=== PATIENT | male | born 1940 | race Caucasian/White ===

== ENCOUNTER 2018-01-17 22:08 | Inpatient (IN) | payer MEDICARE ==
[~2018-01-17] VITALS: Ht 175.3 cm; Wt 81.6 kg
--- NOTE | 2018-01-17 22:08 | NUR ---
PT TO ER BED 7. PT BIBRA FROM SNF C/O RESP DISTRESS. PT ARRIVES TO ER ON CPAP IN SEVERE RESP DISTRESS. NOTED TACHYPNIC, SHALLOW RESP. DR BASS AND RT AT BEDSIDE.
--- NOTE | 2018-01-17 22:10 | NUR ---
DR BASS AND RT AT BEDSIDE FOR INTUBATION. SEE INTUBATION INTERVENTION NOTES.
[2018-01-17 22:20] VITALS: BP 92/92
--- NOTE | 2018-01-17 22:20 | NUR ---
VENT SETTINGS: RATE 22 TV 550 FIO2 100% PEEP 5.
--- NOTE | 2018-01-17 22:20 | NUR ---
PT ORALLY INTUBATED VIA ETT #7.5 24CM @ LIP. PT PLACED ON [facility] VENT SETTINGS PER DR ALCANTARA REQUEST. VENT PLUGGED INTO RED OUTLET. AMBU BAG BEDSIDE. ALARMS ARE SET AND AUDIBLE. WILL CONTINUE TO MONITOR Addendum: 01/17/18 at 2310 by JEFF FRIAS RT Amended: Links added.
[2018-01-17] MEDS ORDERED: ACETAMINOPHEN 650 MG/SUPP.RECT RC ONE ×2 (22:30→22:33)
[2018-01-17] MEDS ORDERED: ETOMIDATE 2 MG/ML VIAL IV ONE ×2 (22:30→23:00)
[2018-01-17] MEDS ORDERED: ROCURONIUM BROMIDE 100 MG/10 ML VIAL IV ONE (22:30)
[2018-01-17] MEDS ORDERED: DILTIAZEM HCL IV 125 MG in IV NS 0.9% 100 ML IV PRN (22:30)
[2018-01-17] MEDS ORDERED: IV NS 0.9% 500 ML BAG IV ONE (22:30)
[2018-01-17] MEDS ORDERED: DILTIAZEM HCL 50 MG IV IV ONE (22:30)
--- NOTE | 2018-01-17 22:30 | NUR ---
LAB AT BEDSIDE FOR DRAW.
[2018-01-17] MEDS ORDERED: DILTIAZEM HCL 25 MG IV ONE ×2 (22:32→22:47)
[2018-01-17 22:43] LABS: HEMATOCRIT 35 % (39-51); HEMOGLOBIN 11.2 g/dL (13.5-17.5); LYMPHOCYTES # (AUTO) 0.8 /CMM (0.8-4.8); LYMPHOCYTES % (AUTO) 4.7 % (20.0-44.0); MEAN CORPUSCULAR HEMOGLOBIN 31 PG (26.0-33.0); MEAN CORPUSCULAR HGB CONC 32 g/dl (31.0-36.0); MEAN CORPUSCULAR VOLUME 97 fL (80-96); MONOCYTES % (AUTO) 0.1 % (2.0-12.0); NEUTROPHILS # (AUTO) 17.1 /CMM (1.8-8.9); NEUTROPHILS % (AUTO) 95.2 % (43.0-81.0); PLATELET COUNT (AUTO) 206 /CMM (150-450); RDW COEFFICIENT OF VARIATION 16.3 (11.5-15.0); RED BLOOD CELL COUNT(AUTO) 3.57 MIL/uL (4.5-6.0)
--- NOTE | 2018-01-17 22:45 | NUR ---
ABG RESULT GIVEN TO DR ALCANTARA, INCREASED RR TO 22 Addendum: 01/17/18 at 2311 by JEFF FRIAS RT Amended: Links added.
[2018-01-17] MEDS ORDERED: DILTIAZEM HCL 50 MG IV ONE (22:47)
[2018-01-17 22:51] LABS: ABG BASE EXCESS -15.6 mmol/L; ABG OXYGEN SATURATION 91.5 % (92.0-98.5); ABG PCO2 52.4 mmHg (35.0-45.0); ABG PO2 90.5 mmHg (75.0-100.0); AaDO2 570.1 mmHg; COHb 0.5 % (0.5-1.5); MetHb 0.7 % (0.0-1.5); O2Hb 90.4 % (94.0-97.0); SITE, ABG Right Radial; VENT MODE, BG AC 16 550 100% +5
[2018-01-17] MEDS ORDERED: SODIUM BICARBONATE SYR 50 MEQ/50 ML DISP.SYRIN ONE (22:56)
[2018-01-17] MEDS ORDERED: SODIUM BICARBONATE SYR 50 MEQ/50 ML DISP.SYRIN IV ONE (23:00)
[2018-01-17] MEDS ORDERED: IV NS 0.9% 1,000 ML BAG IV ONE (23:00)
[2018-01-17] MEDS ORDERED: ROCURONIUM BROMIDE 50 MG/5 ML IV ONE (23:00)
[2018-01-17 23:02] LABS: TROPONIN I 0.085 ng/mL (0.00-0.056)
[2018-01-17 23:06] LABS: ALANINE AMINOTRANSFERASE 32 U/L (12-78); ALBUMIN 1.7 g/dL (3.4-5.0); ALKALINE PHOSPHATASE 82 U/L (46-116); ASPARTATE AMINOTRANSFERASE 18 U/L (15-37); B-TYPE NATRIURETIC PEPTIDE 5530 PG/ML (0-125); BILIRUBIN,DIRECT 0.4 mg/dL (0.0-0.2); BILIRUBIN,TOTAL 0.8 mg/dL (0.2-1.0); CALCIUM, SERUM 8.1 mg/dL (8.5-10.1); CARBON DIOXIDE 17 mmol/L (21-32); CHLORIDE 120 mmol/L (98-107); CREATININE 5.8 mg/dL (0.6-1.3); GLUCOSE 218 mg/dL (74-106); POTASSIUM 4.6 mmol/L (3.5-5.1); TOTAL PROTEIN, SERUM 7.2 g/dL (6.4-8.2); UREA NITROGEN, BLOOD 75 mg/dL (7-18)
--- NOTE | 2018-01-17 23:07 | NUR ---
XRAY AT BEDSIDE FOR PLACEMENT OF ET TUBE.
[2018-01-17 23:08] LABS: SODIUM SERUM 157 mmol/L (136-145)
[2018-01-17 23:11] LABS: APPEARANCE,URINE CLOUDY (CLEAR); BILIRUBIN,URINE NEGATIVE (NEGATIVE); BLOOD, URINE 3+ Ery/uL (NEGATIVE); COLOR,URINE DARK YELLOW (YELLOW); KETONES,URINE NEGATIVE (NEGATIVE); LEUKOCYTE ESTERASE ,URINE 3+ (NEGATIVE); NITRITE, URINE POSITIVE (NEGATIVE); PROTEIN,URINE 1+ mg/dl (NEGATIVE); UGLUCOSE NEGATIVE (NEGATIVE); UROBILINOGEN,URINE 0.2 EU/dL (0.2)
--- NOTE | 2018-01-17 23:12 | NUR ---
ORTIZ ETT 1CM. ETT AT 23CM Addendum: 01/17/18 at 2313 by JEFF FRIAS RT Amended: Links added.
[2018-01-17 23:19] LABS: BACTERIA,URINE Many /HPF (None Seen); RBC,URINE 21-50 /HPF (0-2); SQUAMOUS EPITHELIAL CELL,UR Few /HPF (None Seen); WBC,URINE TOO NUMEROUS TO COUN /HPF (0-3)
[2018-01-17] MEDS ORDERED: LEVOFLOXACIN 750 MG /D5W 150ML 150 ML IV ONE ×2 (23:20→23:30)
[2018-01-17] MEDS ORDERED: PIPERACILLIN /TAZOBACTAM 3.375 G VIAL IV ONE (23:20)
[2018-01-17] MEDS ORDERED: ASPIRIN 300 MG/SUPP.RECT RC ONE (23:30)
[2018-01-17] MEDS ORDERED: PIPERACILLIN /TAZOBACTAM 3.375 G in IV D5W 50 ML IV ONE (23:30)
[2018-01-17 23:40] LABS: INR 1.23 (0.87-1.13)
[2018-01-18] VITALS (38 sets, daily range): BP systolic 30–139; BP diastolic 10–74
--- NOTE | 2018-01-18 00:08 | NUR ---
REPORT GIVEN TO ED, RN FOR ADINA IN ICU
--- NOTE | 2018-01-18 00:21 | NUR ---
RT CALLED TO HELP TRANSPORT PT.
[2018-01-18] MEDS ORDERED: IV NS 0.9% 1,000 ML IV PRN ×2 (00:45→07:45)
--- NOTE | 2018-01-18 00:45 | NUR ---
PT TRANSPORTED VIA STRETCHER ON MISSILE PAD MECHANIC WITH RN AND RT PER ACLS PROTOCOL TO ICU 260. VSS.
[2018-01-18] MEDS ORDERED: VANCOMYCIN 1 GM in IV NS 0.9% 250 ML IV SCH (01:00)
[2018-01-18] MEDS ORDERED: Z GUARD REMEDY 2 OZ OINT TP PRN (01:00)
[2018-01-18] MEDS ORDERED: ONDANSETRON HCL/PF 4 MG/2 ML VIAL IVP PRN (01:00)
[2018-01-18] MEDS ORDERED: ACETAMINOPHEN 650 MG/SUPP.RECT RC PRN (01:00)
[2018-01-18] MEDS ORDERED: ZOLPIDEM TARTRATE 5 MG TABLET PO PRN (01:00)
[2018-01-18] MEDS ORDERED: VANCOMYCIN 1 GM VIAL ONE (01:41)
[2018-01-18] MEDS ORDERED: PHENYLEPHRINE 10 MG/ML VIAL ONE (01:51)
[2018-01-18] MEDS ORDERED: DILTIAZEM HCL 25 MG IV ONE (01:53)
[2018-01-18] MEDS ORDERED: MIRT15TA PO (01:56)
[2018-01-18] MEDS ORDERED: FOLI1TAB16 PO (01:56)
[2018-01-18] MEDS ORDERED: THIA100T13 PO (01:56)
[2018-01-18] MEDS ORDERED: NA P133E RC (01:56)
[2018-01-18] MEDS ORDERED: PROHEAL PO (01:56)
[2018-01-18] MEDS ORDERED: ASCO500T9 PO (01:56)
[2018-01-18] MEDS ORDERED: MAGN400O21 PO (01:56)
[2018-01-18] MEDS ORDERED: MULT9LIQ6 PO (01:56)
[2018-01-18] MEDS ORDERED: BISA10SU61 RC (01:56)
[2018-01-18] MEDS ORDERED: ACET-868 PO (01:56)
[2018-01-18] MEDS: PHENYLEPHRINE 80 MG in IV D5W 250 ML IV PRN ×2 (02:15→08:32)
[2018-01-18 03:21] LABS: ABG BASE EXCESS -12.8 mmol/L; ABG OXYGEN SATURATION 87.4 % (92.0-98.5); ABG PCO2 50.8 mmHg (35.0-45.0); ABG PO2 74.1 mmHg (75.0-100.0); AaDO2 588.1 mmHg; COHb 0.3 % (0.5-1.5); MetHb 0.3 % (0.0-1.5); O2Hb 86.9 % (94.0-97.0); PEEP,BG 5 cm H2O; SITE, ABG Right Radial; VT, ABG 550 mL
[2018-01-18] MEDS ORDERED: NOREPINEPHRINE 16 MG in IV D5W 500 ML IV PRN (04:00)
[2018-01-18] MEDS ORDERED: PROPOFOL 100 ML IV PRN (04:00)
[2018-01-18] MEDS ORDERED: PIPERACILLIN /TAZOBACTAM 2.25 G VIAL IV ONE (04:57)
[2018-01-18] MEDS ORDERED: PIPERACILLIN /TAZOBACTAM 2.25 G in IV NS 0.9% 50 ML IV SCH (05:00)
[2018-01-18] MEDS ORDERED: NOREPINEPHRINE 4 MG/4 ML AMPUL IV ONE ×2 (05:15)
--- NOTE | 2018-01-18 05:48 | NUR ---
TALENT ENGINEER PT WAS ADMITTED FROM ER WITH DIAGNOSIS RESPIRATORY FAILURE, UTI, NSTEMI, SEPSIS. STAT INTUBATION WAS DONE IN ER AND NS IV BOLUS 3000 ML GIVEN WELL NAHCO3 100 MEQ IVP. PT WAS A. FIB WITH RVR, SO CARDIZEM DRIP STARTED AFTER BOLUS 10 MG IV. PT IS OBTUNDED, DOES NOT FOLLOW COMMANDS, ALL EXTREMITIES ARE WEAK, RIGHT LOWER LEG IS IN HARD CAST. PT HAS WOUNDS ON RIGHT & LEFT KNEES. PICTURES TAKEN & DRESSINGS CHANGED. KCI MATTRESS APPLIED. STARTED MULTIPLE ANTIBIOTICS IVPB. PT GOT HYPOTENSIVE. STARTED PHENYLEPHRINE DRIP. TITRATED TO MAX. THEN STARTED LEVOPHED DRIP ALSO TO KEEP SBP >90. STAT ABG WAS DONE @ 16./SEE RESULTS/. D-R LORY WAS NOTIFIED. NO FURTHER ORDERS GIVEN. PT IS HARD STICK. HAS ONLY TWO PERIPHERAL IV- LINES. NEED PICC-LINE INSERTION. FEED PREPARATION OPERATOR WAS NOTIFIED. F/C DRAINS BLOODY URINE. CARDIZEM DRIP TITRATED DOWN & STOPPED.
--- NOTE | 2018-01-18 07:15 | NUR ---
RN INITIAL NOTES RECEIVED PT INTUBATED, ETT IN PLACE. ON MECHANICAL VENT. AGONAL BREATHING NOTED. PULSES WEAK AND THREADY. NOTED FIXED, DILATED PUPILS. OG IN PLACE, CONNECTED TO LOW INTERMITTENT SUCTION. NOTED GREENISH GASTRIC OUTPUT AROUND 800ML. IV LINES IN PLACE. PT ON LEVO AT 40MCG/MIN AND ANA ROSA 300MCG/MIN. SBP ON 50S. WILL CALL MD FOR POSSIBLE 3RD PRESSOR. IVF INSUFING. FC IN PLACE, FLUSHED. HEMATURIA NOTED. WILL CLOSELY MONITOR.
[2018-01-18] MEDS ORDERED: PANTOPRAZOLE 40 MG VIAL IV SCH (07:30)
[2018-01-18] MEDS ORDERED: ALLA266C2 TP (07:31)
[2018-01-18] MEDS ORDERED: MULT-24 PO (07:31)
[2018-01-18] MEDS ORDERED: AMIN30LI4 PO (07:31)
--- NOTE | 2018-01-18 07:45 | NUR ---
RN NOTES SEEN AND EXAMINED BY DR. KRAMER. AWARE OF PT'S H&P, CURRENT LAB VALUES AND IMAGING STUDIES. AWARE THAT PT WAS INTUBATED IN ER. GIVEN TOTAL OF NS 2.5L AND SODIUM BICARB. PT WAS ON CARDIZEM DRIP IN ER FOR A.FIB WITH RVR. PT CURRENTLY ON 2 PRESSORS, LEVO AND ANA ROSA, MAXED OUT. WILL START VASO ORDERED. MD ORDERED GIVE NS 2L BOLUS AND ABG. MD ALSO ORDERED LAB WORKS STAT AND IN AM. WILL CLOSELY MONITOR.
[2018-01-18 08:07] LABS: EOSINOPHILS % (AUTO) 0.1 % (0.0-6.0); HEMATOCRIT 28 % (39-51); HEMOGLOBIN 7.9 g/dL (13.5-17.5); LYMPHOCYTES # (AUTO) 1.5 /CMM (0.8-4.8); MEAN CORPUSCULAR HEMOGLOBIN 32 PG (26.0-33.0); MEAN CORPUSCULAR HGB CONC 28 g/dl (31.0-36.0); MEAN CORPUSCULAR VOLUME 112 fL (80-96); MONOCYTES % (AUTO) 0.2 % (2.0-12.0); NEUTROPHILS # (AUTO) 11.8 /CMM (1.8-8.9); NEUTROPHILS % (AUTO) 88.7 % (43.0-81.0); PLATELET COUNT (AUTO) 80 /CMM (150-450); RDW COEFFICIENT OF VARIATION 18.7 (11.5-15.0); WHITE BLOOD COUNT (AUTO) 13.3 K/uL (4.3-11.0)
[2018-01-18] MEDS: VASOPRESSIN INJ 50 UNIT in IV D5W 497.5 ML IV PRN ×2 (08:08→08:20)
[2018-01-18 08:20] LABS: ALANINE AMINOTRANSFERASE 277 U/L (12-78); ALKALINE PHOSPHATASE 55 U/L (46-116); ASPARTATE AMINOTRANSFERASE 535 U/L (15-37); CALCIUM, SERUM 7.1 mg/dL (8.5-10.1); CARBON DIOXIDE 11 mmol/L (21-32); CHLORIDE 108 mmol/L (98-107); MAGNESIUM 2.1 mg/dL (1.8-2.4); SODIUM SERUM 141 mmol/L (136-145); TOTAL PROTEIN, SERUM 4.6 g/dL (6.4-8.2); UREA NITROGEN, BLOOD 67 mg/dL (7-18)
[2018-01-18] MEDS ORDERED: FEE PK DOSING 1 MIN EA MC ONE (08:23)
[2018-01-18 08:26] LABS: GLUCOSE 528 mg/dL (74-106); PHOSPHORUS 9.1 mg/dL (2.5-4.9); POTASSIUM 6.2 mmol/L (3.5-5.1)
[2018-01-18 08:27] LABS: ALBUMIN 0.9 g/dL (3.4-5.0)
--- NOTE | 2018-01-18 08:30 | NUR ---
RN NOTES PT NOTED PEA. CODE BLUE CALLED. SEE CODE BLUE RECORD.
[2018-01-18] MEDS ORDERED: SODIUM BICARBONATE SYR 50 MEQ/50 ML DISP.SYRIN IV ONE (08:37)
[2018-01-18] MEDS ORDERED: FEE EMEERGENCY 1 MIN EA MC ONE (08:37)
[2018-01-18] MEDS ORDERED: EPINEPHRINE (1:10,000) SYRINGE 1 MG/10 ML DISP.SYRIN IVP ONE (08:37)
[2018-01-18] MEDS ORDERED: HYDROCORTISONE SOD SUCCINATE 100 MG/2 ML VIAL IV SCH (09:00)
--- NOTE | 2018-01-18 09:15 | NUR ---
ICU/RN PT S/P CODE TOMMY AT 0838.ADMITTED 01/17/18 AT 22:21. [facility] NOTIFIED.#[id number].CONCESSIONIST OFFICE NOTIFIED- DANYEL.NOT A CONCESSIONIST CASE.OK TRANSFER BODY TO [facility].PT HAS NO FAMILY.BODY WILL TRANSFER TO [facility].
--- NOTE | 2018-01-18 10:30 | NUR ---
RN NOTES TRANSFERRED TO [facility]. GARRETT BENDER MACHINE OPERATOR AWARE.
[2018-01-18 12:40] LABS: BAND % (MANUAL) 66 % (0.0-5.0); LYMPHOCYTES % (MANUAL) 5 % (16-48); MONOCYTES % (MANUAL) 5 % (0-11.0); NEUTROPHILS % (MANUAL) 24 (42-76)
[2018-01-20] MEDS ORDERED: VANCOMYCIN 1 GM in IV NS 0.9% 250 ML IV SCH (02:00)
== END 2018-01-18 08:38 | disposition expired | DRG 871 ==
LOC: ER 22:10 → ICU 23:44
PROC: 5A1935Z Respiratory Ventilation, Less than 24 Consecutive Hours (ICD-10-PCS; principal; 2018-01-17)
PROC: 0BH18EZ Insertion of Endotracheal Airway into Trachea, Via Natural or Artificial Opening Endoscopic (ICD-10-PCS; 2018-01-17)
PROC: 5A12012 Performance of Cardiac Output, Single, Manual (ICD-10-PCS; 2018-01-18)
DX: A41.9 Sepsis, unspecified organism (principal); I21.A1 Myocardial infarction type 2; I13.0 Hypertensive heart and chronic kidney disease with heart failure and stage 1 through stage 4 chronic kidney disease, or unspecified chronic kidney disease; J96.02 Acute respiratory failure with hypercapnia; J96.01 Acute respiratory failure with hypoxia; N17.0 Acute kidney failure with tubular necrosis; J18.9 Pneumonia, unspecified organism; E87.4 Mixed disorder of acid-base balance; E87.0 Hyperosmolality and hypernatremia; I50.9 Heart failure, unspecified; N39.0 Urinary tract infection, site not specified; I48.91 Unspecified atrial fibrillation; D64.9 Anemia, unspecified; E86.0 Dehydration; N18.9 Chronic kidney disease, unspecified; I25.10 Atherosclerotic heart disease of native coronary artery without angina pectoris; B96.20 Unspecified Escherichia coli [E. coli] as the cause of diseases classified elsewhere; R65.20 Severe sepsis without septic shock
CPT/HCPCS: 31720; 36415; 36600; 71045-TC; 80048-TC; 80053-TC; 80076-TC; 81000-TC; 82803-TC; 83605-TC; 83735-TC; 83880; 84100-TC; 84484-TC; 85025-TC; 85730-TC; 87040-TC; 87081-TC; 87086-TC; 87186-TC; 94002-TC; 99082-TC; A4216; A4606; A6403; J0171; J2370; J2543; J3370; J3490; J7030; J7040; J7050; J7060; Z7610